=== PATIENT | male | born 2000 | race Caucasian/White ===

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

== ENCOUNTER 2021-03-06 17:37 | Emergency (ER) | payer OTHER, MEDICAID ==
[~2021-03-06] VITALS: Ht 167.6 cm; Wt 90.9 kg
[2021-03-06 17:58] VITALS: TEMP 98.7
[2021-03-06 19:54] VITALS: BP 130/64; PULSE 80
== END 2021-03-06 19:58 | disposition home or self-care (01) ==
LOC: COL.ER 17:37
DX: S30.22XA Contusion of scrotum and testes, initial encounter (principal); G40.909 Epilepsy, unspecified, not intractable, without status epilepticus; Z79.899 Other long term (current) drug therapy; X58.XXXA Exposure to other specified factors, initial encounter; Y07.9 Unspecified perpetrator of maltreatment and neglect

== ENCOUNTER 2021-03-27 09:59 | Day surgery (SDC) | payer MEDICARE, MEDICAID ==
[~2021-03-27] VITALS: Ht 175.3 cm; Wt 102.6 kg
[2021-03-27] MEDS ORDERED: INTUNIV3 MG PO (10:35)
[2021-03-27] MEDS ORDERED: INDERAL 20MG20 MG PO (10:36)
[2021-03-27] MEDS ORDERED: PROTONIX 40MG T40 MG PO (10:36)
[2021-03-27] MEDS ORDERED: RISPERDAL3 MG PO (10:36)
[2021-03-27 10:37] VITALS: BP 110/68; PULSE 54; TEMP 97.7
[2021-03-27] MEDS ORDERED: ZOLOFT 100MG100 MG PO (10:37)
[2021-03-27] MEDS ORDERED: DESYREL 50MG50 MG PO (10:37)
[2021-03-27 13:00] VITALS: BP 105/51; PULSE 53; TEMP 97.2
--- NOTE | 2021-03-27 13:00 | NUR ---
Patient arrives to [facility] [place] [facility] via cart, accompanied by SENIOR WINDOWS SYSTEMS ADMINISTRATOR Katelynn and MIAH Parikh. He is sitting up in bed, alert and oriented. He denies any pain or nausea. His gaurdian is at the bedside. Monitoring is applied - VSS and WNL on room air. PIV to TKO. He brought a snack from home (soda and a cupcake) to eat. Will continue to monitor.
[2021-03-27 13:15] VITALS: BP 95/53; PULSE 48
--- NOTE | 2021-03-27 13:15 | NUR ---
Patient is resting comfortably. Tolerating PO well. Denies needs at this time.
[2021-03-27 13:30] VITALS: BP 91/50; PULSE 45
[2021-03-27 13:45] VITALS: BP 94/48; PULSE 45
[2021-03-27 14:00] VITALS: BP 102/49; PULSE 50
--- NOTE | 2021-03-27 14:00 | NUR ---
Patient's VSS on room air. Denies pain, nausea, or need. Would like to go home. Waiting on discharge orders.
--- NOTE | 2021-03-27 14:07 | NUR ---
Dr. Contreras is called in the OR and asked for discharge orders for the patient. TORB received that the patient may continue home medications and discharge to home.
--- NOTE | 2021-03-27 14:26 | NUR ---
Patient has met discharge criteria. Discharge instructions are discussed with his guardian. They deny questions and verbalize understanding. PIV is removed with catheter intact and hemostasis achieved. He changes to his clothing independently. He is escorted to the exit via wheelchair by staff. He is discharged to the care of his guardian, who drives him home in private vehicle, at 1426.
== END 2021-03-27 14:26 | disposition home or self-care (01) ==
LOC: SDCO 09:59
DX: K60.1 Chronic anal fissure (principal); K21.9 Gastro-esophageal reflux disease without esophagitis; E78.00 Pure hypercholesterolemia, unspecified; F41.9 Anxiety disorder, unspecified; Z20.822 Contact with and (suspected) exposure to COVID-19; Z79.899 Other long term (current) drug therapy; Z82.49 Family history of ischemic heart disease and other diseases of the circulatory system
CPT/HCPCS: J0585; J0690; J2250; J2704; J3010; J7120

== ENCOUNTER 2021-05-07 08:39 | Day surgery (SDC) | payer MEDICARE, MEDICAID ==
[~2021-05-07] VITALS: Ht 175.3 cm; Wt 104.5 kg
[~2021-05-07 08:39] MED LIST changes: +DESYREL 50MG50 MG PO; +INDERAL 20MG20 MG PO; +INTUNIV3 MG PO; +PROTONIX 40MG T40 MG PO; +RISPERDAL3 MG PO; +ZOLOFT 100MG100 MG PO
[2021-05-07 09:35] VITALS: BP 111/77; PULSE 74; TEMP 98.5
[2021-05-07 11:10] VITALS: BP 101/63; PULSE 63; TEMP 98.3
[2021-05-07 11:25] VITALS: BP 105/63; PULSE 67
[2021-05-07 11:40] VITALS: BP 107/65; PULSE 63
--- NOTE | 2021-05-07 11:58 | NUR ---
1110 ARRIVES TO [facility] [place] [facility] [facility] VIA CART. PATIENT AMBULATED TO CHAIR WITH SBA. VSS. WARM BLANKET GIVEN FOR COMFORT. PATIENT REFUSES FOOD. DRINKING WATER FROM A WATER BOTTLE THAT HE BROUGHT. PATIENT'S CAREGIVER HILLARY AT CHAIRSIDE. PATIENT DENIES COMPLAINT. 1125 DR. KEYS IN ROOM SPEAKING WITH PATIENT AND PANTIENT'S CAREGIVER ABOUT PROCEDURE. VSS. PATIENT TAKING WATER PO. DENIES COMPLAINT. VSS. 1140 VSS. IV DISCONTINUED. CATHER INTACT. VERBAL AND WRITTEN DISCHARGE INSTRUCTIONS GIVEN TO PATIENT AND PATIENT'S CAREGIVER. QUESTIONS INVITED AND ANSWERED. BOTH VERBALIZED UNDERSTANDING.
--- NOTE | 2021-05-07 12:11 | NUR ---
1206 PATIENT DISCHARGED TO VEHICLE WITH CAREGIVER VIA WHEELCHAIR.
== END 2021-05-07 12:06 ==
LOC: SDCO 08:39
DX: K21.9 Gastro-esophageal reflux disease without esophagitis (principal); F39 Unspecified mood [affective] disorder
CPT/HCPCS: J2704; J7030

== ENCOUNTER 2021-08-26 13:47 | Emergency (ER) | payer MEDICARE, MEDICAID ==
[~2021-08-26] VITALS: Ht 170.2 cm; Wt 101.4 kg
[2021-08-26 14:51] VITALS: TEMP 97.6
[2021-08-26 18:22] LABS: BASO # 0.1 K/mm3 (0.0-0.2); BASO % 0.4 % (0.0-2.0); EOS # 0.2 K/mm3 (0.0-0.7); EOS % 1.3 % (0.0-4.0); GRAN # 8.4 K/mm3 (1.4-6.5); GRAN % 72.1 % (42.2-75.2); HEMATOCRIT 42.1 % (42.0-52.0); HEMOGLOBIN 13.7 g/dl (13.5-18.0); LYMPH # 2.4 K/mm3 (1.2-3.4); LYMPH % 20.6 % (20.0-51.0); MEAN CELL VOLUME 83 fl (80.0-100.0); MEAN CORPUSCULAR HEMOGLOBIN 27 pg (27-31); MEAN CORPUSCULAR HGB CONC 33 g/dl (33.0-37.0); MEAN PLATELET VOLUME 9.2 fl (7.4-10.4); MONO # 0.6 K/mm3 (0.1-0.6); MONO % 5.3 % (1.7-9.3); PLATELET COUNT 282 K/mm3 (130-400); RED BLOOD COUNT 5.06 M/mm3 (4.20-5.60); REDCELL DISTRIBUTION WIDTH-CV 13.6 % (11.5-14.5)
[2021-08-26 18:44] LABS: ALBUMIN 4.2 gm/dL (3.5-5.0); C-REACTIVE PROTEIN 3.8 mg/dL (0.00-0.50); CALCIUM 9.6 mg/dL (8.4-10.2); CREATININE, serum 0.76 mg/dL (0.72-1.25); POTASSIUM 4.2 mmol/L (3.5-4.5)
[2021-08-26 19:09] LABS: COLLECTION METHOD CLEAN CATCH
[2021-08-26 19:17] LABS: MUCOUS Present (NOT PRESENT); PH 5 (5-8); SQUAMOUS EPITHELIAL 0-2 /hpf (0-10); URINE APPEARANCE Hazy (CLEAR/HAZY); URINE BACTERIA None Seen /hpf (NONE SEEN); URINE BILIRUBIN Negative (NEGATIVE); URINE BLOOD Negative (NEGATIVE); URINE COLOR Yellow (YELLOW); URINE GLUCOSE Negative (NEGATIVE); URINE KETONE Negative (NEGATIVE); URINE LEUKOCYTE ESTERASE Negative (NEGATIVE); URINE NITRATE Negative (NEGATIVE); URINE PROTEIN(semi-quant) Negative (NEGATIVE); URINE RBC 0-2 /hpf (0-2); URINE UROBILINOGEN Negative (NEGATIVE)
[2021-08-26 21:23] VITALS: BP 114/78; PULSE 76
== END 2021-08-26 21:23 | disposition home or self-care (01) ==
LOC: COL.ER 13:47
PROVIDERS: Nurse Practitioner Primary Care
DX: R10.12 Left upper quadrant pain (principal)
CPT/HCPCS: J1885; J7030; Q9967

== ENCOUNTER 2022-04-05 21:29 | Observation (INO) | payer MEDICARE, MEDICAID ==
[~2022-04-05] VITALS: Ht 172.7 cm; Wt 101.6 kg
[2022-04-05 22:25] LABS: BASO # 0.1 K/mm3 (0.0-0.2); BASO % 0.5 % (0.0-2.0); EOS # 0.1 K/mm3 (0.0-0.7); EOS % 1.3 % (0.0-4.0); GRAN # 7.2 K/mm3 (1.4-6.5); GRAN % 69.9 % (42.2-75.2); HEMATOCRIT 38.6 % (42.0-52.0); HEMOGLOBIN 12.6 g/dl (13.5-18.0); LYMPH # 2.2 K/mm3 (1.2-3.4); LYMPH % 20.9 % (20.0-51.0); MEAN CELL VOLUME 82 fl (80.0-100.0); MEAN CORPUSCULAR HEMOGLOBIN 27 pg (27-31); MEAN CORPUSCULAR HGB CONC 33 g/dl (33.0-37.0); MEAN PLATELET VOLUME 9.6 fl (7.4-10.4); MONO # 0.7 K/mm3 (0.1-0.6); MONO % 7.1 % (1.7-9.3); PLATELET COUNT 236 K/mm3 (130-400); RED BLOOD COUNT 4.71 M/mm3 (4.20-5.60); REDCELL DISTRIBUTION WIDTH-CV 13.6 % (11.5-14.5)
[2022-04-05 22:44] LABS: ALANINE AMINOTRANSFERASE 87 U/L (0-55); ALBUMIN 3.7 gm/dL (3.5-5.0); ALKALINE PHOSPHATASE 84 U/L (40-150); ANION GAP 12 mmol/L (7-16); AST,SGOT 39 U/L (5-34); BILIRUBIN,TOTAL 0.7 mg/dL (0.2-1.2); BLOOD UREA NITROGEN 7 mg/dL (9-21); CALCIUM 9.3 mg/dL (8.4-10.2); CARBON DIOXIDE 24 mmol/L (22-29); CHLORIDE 105 mmol/L (98-107); CREATININE, serum 0.74 mg/dL (0.72-1.25); GLUCOSE 89 mg/dL (70-99); POTASSIUM 3.8 mmol/L (3.5-4.5); SODIUM 141 mmol/L (136-145); TOTAL PROTEIN 6.9 gm/dL (6.2-8.1)
[2022-04-05 22:47] LABS: ACETAMINOPHEN < 1.0 ug/mL (10-30); ALCOHOL(ethanol),MEDICAL < 10 mg/dL (0-10); SALICYLATE < 5.0 mg/dL (15.0-30.0)
[2022-04-05 23:35] LABS: COLLECTION METHOD CLEAN CATCH
[2022-04-05 23:43] LABS: PH 6.5 (5.0-8.5); URINE APPEARANCE Clear (CLEAR/HAZY); URINE COLOR Yellow (YELLOW); URINE GLUCOSE Negative (NEGATIVE); URINE KETONE Negative (NEGATIVE); URINE PROTEIN(semi-quant) Negative (NEGATIVE); URINE UROBILINOGEN 0.2 E.U/dL (0.2-1.0)
[2022-04-05 23:44] LABS: URINE BLOOD Negative (NEGATIVE); URINE NITRATE Negative (NEGATIVE)
[2022-04-05 23:52] LABS: SQUAMOUS EPITHELIAL None Seen /hpf (0-10); TRICYCLIC ANTIDEPRESS URINE NEGATIVE; URINE BACTERIA None Seen /hpf (NONE SEEN); URINE RBC 0-2 /hpf (0-2)
[2022-04-06] VITALS (1297 sets, daily range): BP systolic 88–128; BP diastolic 55–88; PULSE 50–123; TEMP 97.7–98.4; O2SAT 83–100
[2022-04-06] MEDS ORDERED: METAMUCIL3.4 GM/Dos PO (01:19)
[2022-04-06] MEDS ORDERED: COLACE 100100 MG/CAP PO (01:23)
--- NOTE | 2022-04-06 01:48 | NUR ---
Patient arrived to ICU 8 with caregiver from [facility] at bedside. Patient is alert and orientated. Denies any suicidal thoughts at this time. Reports "was having a bad moment." Patient placed in armstrong gown and personal belongings put in ICU storage. [facility] caregiver educated on visitors policy with suicide attempts. Stated per [facility] they are supposed to stay with patients while in hospital. Spoke with house supervisior, okay to stay for tonight will speak with unit supervisiors in AM for clarification. Caregiver spoke with [facility] supervisior and left at 0155, educated to call in AM prior to arrival. Maria Esther from poison control called for updates regarding labs and patient condition, provided to Maria Esther. Report from poison control stand point to continue to monitor, and repeat labs in AM. Ericka diaz.
--- NOTE | 2022-04-06 05:43 | NUR ---
Patient resting in bed throughout night. Continues to deny suicidal ideas.
[2022-04-06 06:02] LABS: BASO # 0.1 K/mm3 (0.0-0.2); BASO % 0.7 % (0.0-2.0); EOS # 0.1 K/mm3 (0.0-0.7); EOS % 1.5 % (0.0-4.0); GRAN # 5.5 K/mm3 (1.4-6.5); HEMOGLOBIN 12.4 g/dl (13.5-18.0); LYMPH # 2.1 K/mm3 (1.2-3.4); LYMPH % 24.6 % (20.0-51.0); MEAN CELL VOLUME 83 fl (80.0-100.0); MEAN CORPUSCULAR HEMOGLOBIN 27 pg (27-31); MEAN CORPUSCULAR HGB CONC 33 g/dl (33.0-37.0); MEAN PLATELET VOLUME 9.3 fl (7.4-10.4); MONO # 0.7 K/mm3 (0.1-0.6); PLATELET COUNT 203 K/mm3 (130-400); REDCELL DISTRIBUTION WIDTH-CV 13.7 % (11.5-14.5)
[2022-04-06 06:18] LABS: ALBUMIN 3.4 gm/dL (3.5-5.0); BILIRUBIN,TOTAL 0.9 mg/dL (0.2-1.2); CALCIUM 8.9 mg/dL (8.4-10.2); CREATININE, serum 0.74 mg/dL (0.72-1.25); MAGNESIUM 1.6 mg/dL (1.6-2.6); TOTAL PROTEIN 6.3 gm/dL (6.2-8.1)
--- NOTE | 2022-04-06 07:12 | NUR ---
REPORT GIVEN TO LORI LAMBERT
--- NOTE | 2022-04-06 07:47 | NUR ---
REPORT RECEIVED FROM FAUSTO SIMPSON; PATIENT HAS BEEN RESTING WELL OVERNIGHT WITH VITAL SIGNS WITHIN NORMAL LIMITS. PATIENT DENIES SUICIDAL IDEATION AND IS CURRENTLY RESTING COMFORTABLY IN BED. PATIENT IS ON LR RUNNING THROUGH HIS PERIPHERAL IV.
--- NOTE | 2022-04-06 12:30 | NUR ---
workers' compensation mediator left a message with Nancy Paulson [phone] (information assurance manager of [facility]). Dr Butler is scheduled to see patient on 04/07/22 for a pyschiatric evaluation.
--- NOTE | 2022-04-06 13:00 | NUR ---
GAVE REPORT TO FAUSTO SAMUELS; WILL START BLOOD TRANSFUSION AND BRING PATIENT UP WHEN FIRST 15 MINUTES AND SUBSEQUENT CHARTING ARE FINISHED.
--- NOTE | 2022-04-06 15:12 | NUR ---
PATIENT BROUGHT UP TO SURGICAL FLOOR TO ROOM 346; PATIENT WAS ABLE TO TRANSFER FROM THE BED TO THE WHEELCHAIR AND THEN BACK INTO THE SURGICAL BED WITH MINIMAL ASSISTANCE. PATIENT WAS PUT INTO BED WITH PUMPS RUNNING AND OXYGEN HOOKED UP. DERRICK CARDENAS, WAS PRESENT IN THE ROOM AND STATED SHE WOULD NOTIFY
--- NOTE | 2022-04-06 17:29 | NUR ---
PER REQUEST FROM BILL, PATIENT'S GUARDIAN, PATIENT'S BIOLOGICAL PARENTS BRODIE NEW AND PEG CORNEJO ARE TO HAVE NO CONTACT WITH PATIENT, AND THEY ARE NOT ALLOWED TO GET ANY UPDATES OR INFORMATION REGARDING [facility].
[2022-04-07] VITALS (668 sets, daily range): BP systolic 100–131; BP diastolic 58–81; PULSE 54–98; TEMP 97.7–98.7; O2SAT 86–97
--- NOTE | 2022-04-07 07:28 | NUR ---
REPORT RECEIVED FROM FAUSTO MCCARTHY; PATIENT CURRENTLY RESTING IN BED WITH NO FLUIDS/MEDS RUNNING THROUGH HIS PERIPHERAL IV. VITAL SIGNS ARE ALL WITHIN NORMAL LIMITS WITH THE EXCEPTION OF HR, WHICH IS SLIGHLY BRADYCARDIC AND IN THE MID TO HIGH 50S.
--- NOTE | 2022-04-07 18:00 | NUR ---
FRAUD PREVENTION ANALYST ALTHEA CALLED TO INFORM US THAT A STAFF MEMBER WOULD BE PICKING UP PT. DISCUSSED DISCHARGE INSTRUCTIONS OVER THE PHONE WITH ALTHEA. ALTHEA VERBALIZED UNDERSTANDING OF THE DISCHARGE INSTRUCTIONS FOR THE PT AND WILL FOLLOW UP WITH CYRIL GARCIA NEXT WEEK. CALLED CARYN - GUARDIAN OF PT TO INFORM HIM THAT PT IS BEING DISCHARFED TO [facility]. ASKED IF HE HAD ANY QUESTIONS, HE STATED NO. CARYN STATED THAT PT HAS APPOINTMENTS EVERY 2 WEEKS FOR THE NEXT 3 MONTHS WITH CYRIL GARCIA.
--- NOTE | 2022-04-07 18:18 | NUR ---
PTS LIFE INSURANCE SALESPERSON KALENY FROM [facility] VERBALIZED DISCHARGE INSTRUCTIONS FOR PT. PT LEFT UNIT FOR HOME WITH LIFE INSURANCE SALESPERSON, ALTHEA AT THIS TIME.
== END 2022-04-07 18:18 | disposition other institution (70) ==
LOC: COL.ER 21:29 → ICU 23:27 → COL.ER 23:27 → ICU 04-07 18:18
PROVIDERS: Emergency Medicine; Student in an Organized Health Care Education/Training Program; ADMIT Internal Medicine
DX: T65.892A Toxic effect of other specified substances, intentional self-harm, initial encounter (principal); F90.9 Attention-deficit hyperactivity disorder, unspecified type; F84.0 Autistic disorder; F41.9 Anxiety disorder, unspecified; Z79.899 Other long term (current) drug therapy; K21.9 Gastro-esophageal reflux disease without esophagitis; F32.A Depression, unspecified
CPT/HCPCS: G0378; J1644; J2405; J7030

== ENCOUNTER 2023-05-26 12:30 | Emergency (ER) | payer MEDICAID, OTHER ==
[~2023-05-26] VITALS: Ht 175.3 cm; Wt 103.0 kg
[~2023-05-26 12:30] MED LIST changes: +COLACE 100100 MG/CAP PO; +METAMUCIL3.4 GM/Dos PO
[2023-05-26 12:41] VITALS: TEMP 97.8
[2023-05-26 13:24] LABS: BASO % 0.3 % (0.0-2.0); EOS # 0.1 K/mm3 (0.0-0.7); EOS % 0.8 % (0.0-4.0); GRAN # 7.2 K/mm3 (1.4-6.5); GRAN % 76.9 % (42.2-75.2); HEMATOCRIT 41.7 % (42.0-52.0); LYMPH # 1.6 K/mm3 (1.2-3.4); LYMPH % 16.5 % (20.0-51.0); MEAN CELL VOLUME 83 fl (80.0-100.0); MEAN CORPUSCULAR HEMOGLOBIN 26 pg (27-31); MEAN CORPUSCULAR HGB CONC 31 g/dl (33.0-37.0); MEAN PLATELET VOLUME 9.3 fl (7.4-10.4); MONO # 0.5 K/mm3 (0.1-0.6); MONO % 5.2 % (1.7-9.3); PLATELET COUNT 273 K/mm3 (130-400); RED BLOOD COUNT 5.02 M/mm3 (4.20-5.60); REDCELL DISTRIBUTION WIDTH-CV 14.6 % (11.5-14.5)
[2023-05-26 13:36] LABS: ALBUMIN 4.3 gm/dL (3.5-5.0); BILIRUBIN,TOTAL 1.2 mg/dL (0.2-1.2); CALCIUM 9.8 mg/dL (8.4-10.2); CREATININE, serum 0.8 mg/dL (0.72-1.25); POTASSIUM 4.1 mmol/L (3.5-4.5); TOTAL PROTEIN 7.7 gm/dL (6.2-8.1)
[2023-05-26] MEDS ORDERED: ZOFRAN 4MG T4 MG/TAB PO (14:05)
[2023-05-26 14:35] VITALS: BP 124/72; PULSE 55
== END 2023-05-26 14:35 | disposition home or self-care (01) ==
LOC: COL.ER 12:30
PROVIDERS: Physician Assistant
DX: A08.4 Viral intestinal infection, unspecified (principal)
CPT/HCPCS: J2405; J7030

== ENCOUNTER 2023-12-08 21:44 | Emergency (ER) | payer MEDICAID, OTHER ==
[~2023-12-08] VITALS: Ht 170.2 cm; Wt 79.5 kg
[~2023-12-08 21:44] MED LIST changes: +ZOFRAN 4MG T4 MG/TAB PO
[2023-12-08 22:07] LABS: BASO # 0.1 K/mm3 (0.0-0.2); BASO % 0.5 % (0.0-2.0); EOS # 0.2 K/mm3 (0.0-0.7); HEMATOCRIT 43.9 % (42.0-52.0); HEMOGLOBIN 13.7 g/dl (13.5-18.0); LYMPH # 2.5 K/mm3 (1.2-3.4); LYMPH % 21.9 % (20.0-51.0); MEAN CELL VOLUME 83 fl (80.0-100.0); MEAN CORPUSCULAR HEMOGLOBIN 26 pg (27-31); MEAN CORPUSCULAR HGB CONC 31 g/dl (33.0-37.0); MEAN PLATELET VOLUME 9.4 fl (7.4-10.4); MONO # 0.6 K/mm3 (0.1-0.6); MONO % 5.4 % (1.7-9.3); PLATELET COUNT 264 K/mm3 (130-400); RED BLOOD COUNT 5.27 M/mm3 (4.20-5.60)
[2023-12-08 22:22] LABS: ALANINE AMINOTRANSFERASE 27 U/L (0-55); ALCOHOL(ethanol),MEDICAL < 10 mg/dL (0-10); ALKALINE PHOSPHATASE 79 U/L (40-150); ANION GAP 12 mmol/L (7-16); AST,SGOT 23 U/L (5-34); BILIRUBIN,TOTAL 0.7 mg/dL (0.2-1.2); BLOOD UREA NITROGEN 8 mg/dL (9-21); CALCIUM 10.3 mg/dL (8.4-10.2); CHLORIDE 106 mEq/L (98-107); CREATININE, serum 0.95 mg/dL (0.72-1.25); GLUCOSE 82 mg/dL (70-99); POTASSIUM 4.2 mEq/L (3.5-4.5); SALICYLATE < 5.0 mg/dL (15.0-30.0); SODIUM 142 mEq/L (136-145); TOTAL PROTEIN 7.3 g/dl (6.2-8.1)
[2023-12-08 22:28] LABS: TROPONIN-I < 0.010 ng/mL (0.00-0.033)
[2023-12-09 01:05] LABS: COLLECTION METHOD CLEAN CATCH
[2023-12-09 01:07] LABS: TRICYCLIC ANTIDEPRESS URINE NEGATIVE (NEGATIVE)
[2023-12-09 01:14] LABS: PH 5.5 (5.0-8.5); URINE APPEARANCE CLEAR (CLEAR/HAZY); URINE BLOOD NEGATIVE (NEGATIVE); URINE COLOR YELLOW (YELLOW); URINE GLUCOSE NEGATIVE (NEGATIVE); URINE KETONE TRACE (NEGATIVE); URINE NITRATE NEGATIVE (NEGATIVE); URINE PROTEIN(semi-quant) NEGATIVE (NEGATIVE); URINE UROBILINOGEN 0.2 E.U/dL (0.2-1.0)
[2023-12-09 01:38] VITALS: BP 110/68; PULSE 57; TEMP 98.4
== END 2023-12-09 01:43 | disposition home or self-care (01) ==
LOC: COL.ER 21:44
PROVIDERS: Emergency Medicine
DX: T39.311A Poisoning by propionic acid derivatives, accidental (unintentional), initial encounter (principal); R41.82 Altered mental status, unspecified

== ENCOUNTER 2024-02-11 21:43 | Emergency (ER) | payer MEDICARE, MEDICAID ==
[~2024-02-11] VITALS: Ht 175.3 cm; Wt 84.7 kg
[2024-02-11 21:49] VITALS: TEMP 98.1
[2024-02-12 01:15] VITALS: BP 135/86; PULSE 75
== END 2024-02-12 01:15 | disposition home or self-care (01) ==
LOC: COL.ER 21:43
DX: R45.851 Suicidal ideations (principal)